=== PATIENT | female | born 1990 | race Caucasian/White ===

== ENCOUNTER 2018-06-29 00:55 | Emergency (ER) | payer OTHER ==
[~2018-06-29] VITALS: Ht 157.5 cm; Wt 81.6 kg
[~2018-06-29 00:55] MED LIST: AFRIN SINUS 1515 ML; APAP325 MG PO; ATIVAN0.5 MG PO; DOXYCYCLINE100 MG PO; FIORICET 325 MG1 TAB PO; GOOD SENSE IBU200 MG PO; MONTELUKAST SOD10 MG PO; PREDNISONE 20MG20 MG PO; ZOFRAN ODT4 MG PO; ZOFRAN4 M1 PO; ZYRTEC ALLERGY10 MG PO
--- NOTE | 2018-06-29 01:13 | ED GI/GU/ABDOMINAL COMPLAINT ---
History of Present Illness General Chief Complaint: Abdominal Pain/Flank Pain Stated Complaint: ABD PAIN X FEW HRS PER PT Source: patient, family Exam Limitations: no limitations Vital Signs & Intake/Output Vital Signs & Intake/Output Vital Signs Date Time Temp Pulse Resp B/P B/P Pulse O2 O2 Flow FiO2 Mean Ox Delivery Rate 06/29 0245 99 Room Air 06/29 0242 98.3 64 16 112/61 99 Room Air 06/29 0102 98.7 63 20 140/67 96 Room Air Allergies Uncoded Allergies: SEASONAL (06/29/18) Reconcile Medications Acetaminophen (Apap) 325 MG TABLET 1 TAB PO Q4-6 PRN PRN ALLERGYS (Reported) Acetaminophen/Butalbital/Caf (Fioricet 325 MG-50 MG-40 MG) 1 TAB TAB 1 TAB PO Q4P PRN HEADACHES (Reported) do not exceed 6 tablet(s) in 24 hours CETIRIZINE HCL (Zyrtec) 10 MG CAPSULE 1 CAP PO DAILY ALLERGYS (Reported) Doxycycline Hyclate 100 MG CAPSULE 1 CAP PO BID LYME Ibuprofen 200 MG TABLET 400 MG PO PRN ALLERGYS (Reported) Lorazepam (Ativan) 0.5 MG TAB 1 TAB PO DAILY PRN ANXIETY Montelukast Sodium 10 MG TABLET 10 MG PO DAILY ALLERGYS (Reported) Ondansetron (Zofran Odt) 4 MG ODT 1 TAB PO Q4-6 PRN NAUSEA Ondansetron (Zofran Odt) 4 MG TAB.RAPDIS 1 TAB PO Q6-PRN PRN NAUSEA OXYMETAZOLINE HCL (Afrin) 0.05 % SPRAY ALLERGYS (Reported) Prednisone 20 MG TABLET 1 TAB PO BID SORE THROAT Triage Nurses Notes Reviewed? yes ? N Is pt currently ? No HPI: Patient presents with epigastric abdominal pain that started last night. The pain has been constant. Patient's last bowel movement was today. There is no radiation of the pain. Positive nausea and vomiting. The pain is cramping in nature. There are no aggravating or mitigating factors. Pain is 8 out of 10. Past History Travel History Traveled to [place] past 21 day No Medical History Any Pertinent Medical History? see below for history Respiratory: MONONUCLEOSIS Psychiatric: depression History of CDIFF: No Surgical History Surgical History: non-contributory Psychosocial History Who do you live with Family What is your primary language Gibraltarian Tobacco Use: Never used ETOH Use: denies use Illicit Drug Use: denies illicit drug use Family History Hx Contributory? No Review of Systems Review of Systems Constitutional: Reports: no symptoms. EENTM: Reports: no symptoms. Respiratory: Reports: no symptoms. Cardiovascular: Reports: no symptoms. GI: Reports: see HPI, abdominal pain, constipation, nausea, vomiting. Genitourinary: Reports: no symptoms. Musculoskeletal: Reports: no symptoms. Skin: Reports: no symptoms. Neurological/Psychological: Reports: no symptoms. Hematologic/Endocrine: Reports: no symptoms. Immunologic/Allergic: Reports: no symptoms. All Other Systems: Reviewed and Negative Physical Exam Physical Exam General Appearance: well developed/nourished, alert, awake, anxious, moderate distress Head: atraumatic, normal appearance Eyes: Bilateral: PERRL, EOMI. Ears, Nose, Throat, Mouth: hearing grossly normal, DRY MUCOSA Neck: normal inspection, supple, full range of motion Respiratory: normal breath sounds, chest non-tender, no respiratory distress, lungs clear Cardiovascular: regular rate/rhythm, normal peripheral pulses Gastrointestinal: normal bowel sounds, soft, no organomegaly, tenderness ( EPIGASTRIC) Back: normal inspection, normal range of motion Extremities: normal range of motion Neurologic/Psych: no motor/sensory deficits, awake, alert, oriented x 3, normal gait, normal mood/affect Skin: intact, normal color, warm/dry Core Measures ACS in differential dx? No Sepsis Present: No Sepsis Focused Exam Completed? No Progress Differential Diagnosis: biliary colic, bowel obstruction, colon cancer, gastritis, hepatitis, ischemic bowel, inflamm bowel dis Plan of Care: Orders Procedure Date/time Status URINALYSIS 06/29 113 Complete LIPASE 06/29 113 Complete HUMAN BETA HCG SCREEN 06/29 113 Complete COMPREHENSIVE METABOLIC PANEL 06/29 113 Complete CBC WITHOUT DIFFERENTIAL 06/29 113 Complete AMYLASE 06/29 113 Complete Laboratory Tests 06/29/18 0156: Anion Gap 10, Estimated GFR > 60, BUN/Creatinine Ratio 21.4, Glucose 97, Calcium 9.4, Total Bilirubin 0.3, AST 22, ALT 28, Alkaline Phosphatase 67, Total Protein 7.6, Albumin 4.3, Globulin 3.3, Albumin/Globulin Ratio 1.3, Amylase 84, Lipase 111, Total Beta HCG NEGATIVE, CBC w Diff MAN DIFF ORDERED, RBC 4.28, MCV 87.9, MCH 29.7, MCHC 33.8, RDW 12.7, MPV 8.9, Gran % 52.7, Lymphocytes % 34.1, Monocytes % 7.6, Eosinophils % 4.9, Basophils % 0.7, Absolute Granulocytes 6.9 H, Segmented Neutrophils 49, Absolute Lymphocytes 4.4 H, Lymphocytes 41, Monocytes 4, Absolute Monocytes 1.0 H, Eosinophils 4, Absolute Eosinophils 0.6, Basophils 2, Absolute Basophils 0.1, Platelet Estimate ADEQUATE, Polychromasia 1 +, Ovalocytes FEW, Fld Total RBCs Counted 100, Urine Color YEL, Urine Clarity CLEAR, Urine pH 6.5, Ur Specific [place] 1.020, Urine Protein NEG, Urine Ketones NEG, Urine Nitrite NEG, Urine Bilirubin NEG, Urine Urobilinogen 0.2, Ur Leukocyte Esterase NEG, Ur Microscopic SEDIMENT EXAMINED, Urine RBC 3-5, Ur Epithelial Cells MANY H, Urine Bacteria FEW H, Urine Hemoglobin TRACE-LYSED, Urine Glucose NEG Diagnostic Imaging: Viewed by Me: CT Scan. Discussed w/RAD: CT Scan. Radiology Impression: PATIENT: MANDEEP DOSHI PRESENT AGE: 27 PATIENT ACCOUNT NO: [id number] : 92 LOCATION: [facility] ORDERING PHYSICIAN: August Ruiz MD SERVICE DATE: 06/29/18 EXAM TYPE: CAT - CT ABD & PELVIS W IV CONTRAST EXAMINATION: CT ABDOMEN AND PELVIS WITH CONTRAST CLINICAL INFORMATION: Right upper quadrant pain COMPARISON: 2015 TECHNIQUE: Multidetector volumetric imaging was performed of the abdomen and pelvis following IV administration of 94 mL of Optiray 320 intravenous contrast. Sagittal and coronal reformatted images were obtained on the technologist's workstation. DLP: 560 mGy-cm FINDINGS: LUNG BASES: The visualized lung bases are unremarkable. LIVER, GALLBLADDER, AND BILIARY TREE: The liver is normal in size, shape, and attenuation. No focal hepatic lesion or biliary ductal dilatation is present. The gallbladder is unremarkable with no evidence of radiopaque gallstones, gallbladder wall thickening, or obvious pericholecystic inflammatory changes. PANCREAS: Unremarkable. SPLEEN: Unremarkable. ADRENAL GLANDS: Unremarkable. KIDNEYS AND URETERS: The kidneys are normal in size, shape, and attenuation. No hydronephrosis, hydroureter, or calculi seen. No perinephric stranding. BLADDER: Unremarkable. GASTROINTESTINAL TRACT: The small and large bowel are unremarkable. The appendix is unremarkable. No free air is seen. ABDOMINAL WALL: No significant hernia is appreciated. LYMPH NODES: Normal. VASCULAR: Unremarkable. PELVIC VISCERA: Pedunculated fibroid is suspected at the uterine fundus measuring approximately 3.8 x 3.1 cm. Right ovarian corpus luteal cyst is suspected measuring 1.6 cm in diameter. Trace pelvic free fluid is noted. OSSEOUS STRUCTURES: Unremarkable. IMPRESSION: 1. Unremarkable CT appearance of the gallbladder. 2. Trace nonspecific pelvic free fluid which may be physiologic. 3. Pedunculated fibroid off the uterine fundus. DICTATED BY: Truong Bush MD DATE/TIME DICTATED:06/29/18329 DENTIST/OWNER:MARV DATE/TIME TRANSCRIBED:06/29/18329 CONFIDENTIAL, DO NOT COPY WITHOUT APPROPRIATE AUTHORIZATION. <Electronically signed in Other Vendor System> SIGNED BY: Truong Bush MD 06/29/18338 Initial ED EKG: none Departure Departure Disposition: HOME OR SELF CARE Condition: Stable Clinical Impression Primary Impression: Upper abdominal pain, unspecified Referrals: Lizzy Salamanca DO (PCP/Family) Bong JOSUE,[facility] Additional Instructions: return if symptoms worsen or for any concerns follow up with dr. owen Departure Forms: Customer Survey General Discharge Information Prescriptions: Current Visit Scripts Sennosides/Docusate Sodium (Senokot-S Tablet) 1 TAB PO BID PRN CONSTIPATION #60 TAB
[2018-06-29 02:25] LABS: ABSOLUTE BASOPHIL COUNT 0.1 /CUMM (0.0-0.2); ABSOLUTE EOSINOPHIL COUNT 0.6 /CUMM (0.0-0.7); ABSOLUTE GRANULOCYTE CT 6.9 /CUMM (1.4-6.5); ABSOLUTE LYMPH COUNT 4.4 /CUMM (1.2-3.4); BASOPHIL % 0.7 % (0.0-2.0); EOSINOPHIL % 4.9 % (0-5); GRANULOCYTE % 52.7 % (42.2-75.2); HEMATOCRIT 37.6 % (37-47); MEAN CORPUSCULAR HGB 29.7 PG (27.0-31.0); MEAN CORPUSCULAR HGB CONC 33.8 G/DL (33.0-37.0); MEAN CORPUSCULAR VOLUME 87.9 FL (81.0-99.0); MEAN PLATELET VOLUME 8.9 FL (7.4-10.4); PLATELET COUNT 379 /CUMM (130-400); RBC DISTRIBUTION WIDTH 12.7 % (11.5-14.5); RED BLOOD CELL CT 4.28 /CUMM (4.20-5.40)
--- NOTE | 2018-06-29 03:39 | CT SCAN REPORT ---
EXAMINATION: CT ABDOMEN AND PELVIS WITH CONTRAST CLINICAL INFORMATION: Right upper quadrant pain COMPARISON: 12/25/2015 TECHNIQUE: Multidetector volumetric imaging was performed of the abdomen and pelvis following IV administration of 94 mL of Optiray 320 intravenous contrast. Sagittal and coronal reformatted images were obtained on the technologist's workstation. DLP: 560 mGy-cm FINDINGS: LUNG BASES: The visualized lung bases are unremarkable. LIVER, GALLBLADDER, AND BILIARY TREE: The liver is normal in size, shape, and attenuation. No focal hepatic lesion or biliary ductal dilatation is present. The gallbladder is unremarkable with no evidence of radiopaque gallstones, gallbladder wall thickening, or obvious pericholecystic inflammatory changes. PANCREAS: Unremarkable. SPLEEN: Unremarkable. ADRENAL GLANDS: Unremarkable. KIDNEYS AND URETERS: The kidneys are normal in size, shape, and attenuation. No hydronephrosis, hydroureter, or calculi seen. No perinephric stranding. BLADDER: Unremarkable. GASTROINTESTINAL TRACT: The small and large bowel are unremarkable. The appendix is unremarkable. No free air is seen. ABDOMINAL WALL: No significant hernia is appreciated. LYMPH NODES: Normal. VASCULAR: Unremarkable. PELVIC VISCERA: Pedunculated fibroid is suspected at the uterine fundus measuring approximately 3.8 x 3.1 cm. Right ovarian corpus luteal cyst is suspected measuring 1.6 cm in diameter. Trace pelvic free fluid is noted. OSSEOUS STRUCTURES: Unremarkable. IMPRESSION: 1. Unremarkable CT appearance of the gallbladder. 2. Trace nonspecific pelvic free fluid which may be physiologic. 3. Pedunculated fibroid off the uterine fundus.
[2018-06-29] MEDS ORDERED: SENOKOT-S TABL1 EACH PO (04:10)
[2018-06-29 04:15] VITALS: BP 101/58
== END 2018-06-29 05:02 ==
LOC: ERH 00:55
PROVIDERS: Emergency Medicine
DX: R10.13 Epigastric pain (principal); R11.2 Nausea with vomiting, unspecified
CPT/HCPCS: 74177; 81001; 96374; 96375; J1885; J2405